=== PATIENT | female | born 1990 | race Caucasian/White ===

== ENCOUNTER → 2019-11-23 15:55 | Outpatient (BNVA) | payer BC, SELFPAY | PROVIDERS: Family Provider Nurse Practitioner Family; Referring Provider Dermatology; Visit Provider Dermatology | DX: L30.1 Dyshidrosis [pompholyx] (principal) | CPT/HCPCS: 99203 ==

== ENCOUNTER 2020-09-13 11:16 | Emergency (ER) | payer BC, SELFPAY ==
[2020-09-13 12:13] VITALS: BP 119/84; PULSE 93; RESP 16; TEMP 36.9; O2SAT 96; BMI 33.6
--- NOTE | 2020-09-13 12:23 | CT_ITS ---
WS: [id number] CT ABDOMEN PELVIS TECHNIQUE: Contrast-enhanced CT of the abdomen and pelvis with coronal and sagittal reformatted image s. CLINICAL INFORMATION: RLQ abd tenderness. right flank pain. RUQ pain COMPARISON: None. DLP: 1765.[address] scans at [facility] use at least one of these dose optimization techniques: automat ed exposure control; mA and/or kV adjustment per patient size (includes targeted exams where dose is matched to clinical indication); or iterative reconstruction. FINDINGS: Diffuse fatty infiltration of the liver. Normal gallbladder. Normal spleen. Normal GE junction. Vandana l portal vein and splenic vein. Normal pancreas. Adrenal glands are normal. No hydronephrosis in eith er kidney. Normal renal parenchymal enhancement. No obstructing renal or ureteral calculi. Normal caliber abdominal aorta. Lung bases are well aerated . Normal sigmoid colon. No evidence of high-grade small or large bowel obstruction. Normal appendix i n the right lower quadrant. No evidence of acute appendicitis. Small amount of free fluid in the pelvis. Normal physiologic uterine enhancement. Enhancing left ovar thu cyst measuring 2.1 x 2.2 cm likely corpus luteum cyst. Small amount of free fluid in the right pe lvis. CT/CT abdomen pelvis w con* [id number] IMPRESSION: 1. No evidence of hydronephrosis. Normal renal parenchymal enhancement. No obs tructing renal or ureteral calculi. 2. Normal appendix in the right lower quadrant. No evidence of acute appendici tis. 3. Enhancing left corpus luteum cyst measuring 2.1 x 2.2 cm. 4. Small amount of free fluid in the right pelvic cul-de-sac.
--- NOTE | 2020-09-13 12:23 | US_ITS ---
WS: [id number] ULTRASOUND ABDOMEN LIMITED CLINICAL INFORMATION: RUQ US COMPARISON: None. FINDINGS: Technically difficult examination due to bowel gas. Liver Size: Mild hepatomegaly Craniocaudal length: 16.5 cm. Echogenicity: Dense Surface nodularity: None. Mass (size and location): None. Bile ducts Intrahepatic ducts: Normal. Common bile duct diameter: 0.3 cm. Gallbladder Normal. Gallstones: None. Gallbladder sludge: None. Gallbladder wall thickening: None. Pericholecystic fluid: None. Sonographic Sharif sign: Absent. Pancreas Not well seen Right kidney: Normal. Hydronephrosis: None. Size: 10.5 cm x 4.3 cm x 6.3 cm. Abdominal aorta and IVC Visualized portions are normal. Ascites: None. US/US abdomen limited [id number] IMPRESSION: Technically limited examination due to bowel gas. 1. Mild hepatomegaly with diffuse fatty infiltration. 2. Normal gallbladder. Normal common bile duct. 3. No hydronephrosis in right kidney.
--- NOTE | 2020-09-13 12:32 | ED_ITS ---
HPI - Abdominal Pain General: Chief Complaint: Abdominal Pain Stated Complaint: ABD pain, mostly R Time Seen by Provider: 09/13/20 12:19 History of Present Illness: HPI narrative: The patient is a 29-year-old female who comes to the ER complaining of right sided abdominal pain for the past day. Also occasional mild nausea. She complains of chronic mild constipation which is not new for her. She was seen at a outside facility earlier today urgent care likely and told to come to the ER because she had blood in her urine. She does not have visible blood in her urine so it must of been from a microscopic test. She says she is also had problems with right upper quadrant pain in the past and had her gallbladder checked at least a few times with no intervention. She does also complain today that the pain goes to bilateral flanks. Denies any previous abdominal surgeries. MD elicited complaint: abdominal pain and flank pain Onset (ago): day(s) (1) Pain Consistency: constant Location: RUQ, RLQ and R flank Severity: moderate Quality: sharp Radiation: R flank and bilateral flank Exacerbating factors: nothing Relieving factors: nothing Associated Symptoms: Reports no associated symptoms, constipation and nausea; Denies GI cramping and diarrhea Review of Systems General: Reports: 10 or more systems reviewed and unremarkable except in HPI and below Const: Denies: fatigue Eyes: Denies: change in vision, blurry vision or eye redness ENMT: Denies: throat pain, swelling of lips/tongue, ear or mastoid pain or nasal congestion Card: Denies: chest pain, palpitations, irregular heart rhythm, edema, dyspnea on exertion or orthopnea Resp: Denies: dyspnea, productive cough or non-productive cough GI: Reports: abdominal pain, nausea and constipation; Denies: diarrhea or GI cramping : Denies: flank pain, difficulty voiding, urinary frequency or urinary urgency Musc: Denies: neck pain, back pain, extremity pain, joint pain, joint redness, limited range of motion or muscle weakness Skin/Breast: Denies: rash, pruritus, erythema, skin pain or skin tenderness Neuro: Denies: headache(s), numbness in extremities, weakness in extremities, sensory changes, difficulty walking, dizziness, confusion or Slurred speech present Psych: Denies: anxiety or depression Endo: Denies: polyuria All/Imm: Denies: urticaria, throat swelling or tongue swelling PFSH ED PFSH: Family History Grandmother Cancer Father Clotting disorder Hypertension Grandfather Dementia Stroke Social History Smoking and tobacco status: never smoked Second hand smoke exposure: No Alcohol intake: current Alcohol intake frequency: holidays/special occasions only Agree to transfusion: Yes (11/23/2019 per patient) Physical Exam Const: COMMON NORMALS: no acute distress, average body habitus, patient oriented x3, no limitations, healthy appearing, alert and well nourished GENERAL APPEARANCE: cooperative, comfortable, well kempt and well developed ORIENTATION/CONSCIOUSNESS: Yes awake, Yes oriented to person, Yes oriented to place and Yes oriented to time HENMT: COMMON NORMALS: normocephalic, external ears normal and Normal external nose present HEAD & SCALP: normal to inspection and normocephalic NOSE: Normal external nose present EXTERNAL EAR: Yes external ears normal MOUTH: Normal oral and palatal mucosa present THROAT: posterior oropharynx normal Eye: COMMON NORMALS: Equal, round and reactive pupils present and EOMs intact bilaterally GENERAL EYE: appearance normal, both eyes and all related structures PUPIL: Yes Equal, round and reactive pupils present Neck/C-Spine: COMMON NORMALS: full ROM, no lymphadenopathy, no meningeal signs and no JVD GENERAL: Yes normal visual inspection Lymph: LYMPHATIC: no lymphadenopathy noted Chest: COMMONS NORMALS: normal inspection of the chest and normal palpation of entire chest wall Resp: COMMON NORMALS: normal respiratory effort, No retractions, No use of accessory muscles, clear to auscultation bilaterally and percussion normal EFFORT & INSPECTION: Yes able to speak in complete sentences AUSCULTATION: clear to auscultation bilaterally PERCUSSION: percussion normal Cardio: COMMON NORMALS: no JVD, regular rate, regular rhythm, S1 normal heart sound present, S2 normal heart sound present and Peripheral pulses 2+ throughout RATE: regular rate RHYTHM: regular rhythm HEART SOUNDS: S1 normal heart sound present and S2 normal heart sound present PERIPHERAL PULSES: Peripheral pulses 2+ throughout GI: COMMON NORMALS: Normal to inspection, nondistended, normoactive bowel sounds present, Soft to palpation, non-tender and no masses INSPECTION: Yes normal to inspection PALPATION: Yes Soft to palpation : COMMON NORMALS: Yes no CVA tenderness BLADDER/KIDNEY EXAM: Yes no CVA tenderness Back/Pelvis: COMMON NORMALS: no CVA tenderness, thoracic and lumbar spine normal to inspection, no thoracic nor lumbar tenderness and thoraco-lumbar ROM normal Extremity: COMMON NORMALS: normal to inspection, full ROM, capillary refill normal, no joint enlargement and no pedal edema GENERAL: Yes normal exam except as noted Neuro: COMMON NORMALS: patient oriented x3, CN's II-XII intact bilaterally, moves all extremities, no focal motor deficits, no sensory deficits noted and gait normal SENSORIUM/ORIENTATION: Yes alert, Yes oriented to person, Yes or iented to place and Yes oriented to time MENINGEAL SIGNS: Yes no meningeal signs Psych: COMMON NORMALS: mental status grossly normal, Normal thought process present, cooperative, normal affect and speech normal APPEARANCE: Yes well kempt ATTITUDE: Yes calm SPEECH: Yes normal speech THOUGHT PROCESS: Normal thought process present Skin: COMMON NORMALS: no rashes or lesions noted GENERAL SKIN EXAM: no rashes or lesions noted Course Vital Signs: Vital signs: Vital Signs Temperature 98.5 F 09/13/20 12:13 Pulse Rate 93 09/13/20 12:13 Respiratory Rate 16 09/13/20 12:13 Blood Pressure 119/84 09/13/20 12:13 Pulse Oximetry 96 09/13/20 12:13 MDM - Abdominal Pain MDM Narrative: Medical decision making narrative: Patient came to the ER complaining of right upper and right lower quadrant abdominal pain. She says she has chronic constipation and has had issues with right upper quadrant pain before however had it looked at multiple times and has been negative. Ultrasound right upper quadrant is normal as well as CT abdomen pelvis shows normal gallbladder and appendix. No acute abnormality seen on any image. Stable for discharge with outpatient follow-up in a few days. ER with worsening symptoms at any time. She does have trace blood in her urine and will treat for potential UTI. No stone seen. Lab Data: Labs: Lab Results 09/13/20 09/13/20 09/13/20 Range/Units 13:05 13:05 13:05 WBC 5.6 (4.0-10.0) 10^3/ uL RBC 5.02 (4.1-5.3) 10^6/u L Hgb 15.0 (11.5-15.3) g/dL Hct 44.9 (37.0-47.0) % MCV 89.4 (81-99) fL MCH 29.9 (28.0-34.0) pg MCHC 33.4 (30.0-36.0) g/dL RDW 11.9 L (12.1-15.1) % Plt Count 234 (130-400) 10^3/c mm MPV 10.2 (7.4-10.4) fL Neut % (Auto) 77.2 % Lymph % (Auto) 14.1 % [place] % (Auto) 7.7 % Eos % (Auto) 0.2 % Baso % (Auto) 0.4 % Neut # (Auto) 4.29 (1.8-7.7) 10^3/u L Lymph # (Auto) 0.8 (0.8-4.8) 10^3/u L [place] # (Auto) 0.4 (0.2-0.9) 10^3/u L Eos # (Auto) 0.0 (0.0-0.8) 10^3/u L Baso # (Auto) 0.0 (0.0-0.1) 10^3/u L Nucleated RBC % (a uto) 0 % Nucleated RBCs # 0.0 /100WBC Sodium 136 (136-145) mmol/L Potassium 3.9 (3.5-5.1) mmol/L Chloride 101 (98-107) mmol/L Carbon Dioxide 25 (22-29) mmol/L Anion Gap 13.9 (5-19) BUN 7 (6-20) mg/dL Creatinine 0.8 (0.5-0.9) mg/dL GFR Calculation 84.2 L (90-130) mL/min Glucose 87 (65-115) mg/dL Calculated Osmolal ity 279 L (285-295) mOsm/k g Calcium 8.8 (8.5-10.5) mg/dL Total Bilirubin 1.2 (0.15-1.2) mg/dL AST 29 (0-32) U/L ALT 41 H (0-33) U/L Alkaline Phosphata se 54 (35-105) IU/L Total Protein 7.5 (6.6-8.7) g/dL Albumin 4.5 (3.5-5.2) g/dL Globulin 3.0 (1.3-4.6) g/dL Lipase 39 (13-60) U/L HCG, Qual Negative (Negative) Urine Color (Yellow) Urine Appearance (CLEAR) Urine pH (5-7) Ur Specific Gravit y (1.005-1.030) Urine Protein (Negative) Urine Glucose (UA) (Normal) Urine Ketones (Negative) Urine Blood (Negative) Urine Nitrate (Negative) Urine Bilirubin (Negative) Urine Urobilinogen (Negative) mg/dL Ur Leukocyte Yanet ase (Negative) Urine RBC (0-2) /hpf Urine WBC (0-5) /hpf Ur Squamous Epith Cells (0-5) /hpf Amorphous Sediment Urine Bacteria (NONE) /hpf 09/13/20 Range/Units 13:05 WBC (4.0-10.0) 10^3/ uL RBC (4.1-5.3) 10^6/u L Hgb (11.5-15.3) g/dL Hct (37.0-47.0) % MCV (81-99) fL MCH (28.0-34.0) pg MCHC (30.0-36.0) g/dL RDW (12.1-15.1) % Plt Count (130-400) 10^3/c mm MPV (7.4-10.4) fL Neut % (Auto) % Lymph % (Auto) % [place] % (Auto) % Eos % (Auto) % Baso % (Auto) % Neut # (Auto) (1.8-7.7) 10^3/u L Lymph # (Auto) (0.8-4.8) 10^3/u L [place] # (Auto) (0.2-0.9) 10^3/u L Eos # (Auto) (0.0-0.8) 10^3/u L Baso # (Auto) (0.0-0.1) 10^3/u L Nucleated RBC % (a uto) % Nucleated RBCs # /100WBC Sodium (136-145) mmol/L Potassium (3.5-5.1) mmol/L Chloride (98-107) mmol/L Carbon Dioxide (22-29) mmol/L Anion Gap (5-19) BUN (6-20) mg/dL Creatinine (0.5-0.9) mg/dL GFR Calculation (90-130) mL/min Glucose (65-115) mg/dL Calculated Osmolal ity (285-295) mOsm/k g Calcium (8.5-10.5) mg/dL Total Bilirubin (0.15-1.2) mg/dL AST (0-32) U/L ALT (0-33) U/L Alkaline Phosphata se (35-105) IU/L Total Protein (6.6-8.7) g/dL Albumin (3.5-5.2) g/dL Globulin (1.3-4.6) g/dL Lipase (13-60) U/L HCG, Qual (Negative) Urine Color Yellow (Yellow) Urine Appearance Clear (CLEAR) Urine pH 6 (5-7) Ur Specific Gravit y 1.005 (1.005-1.030) Urine Protein Neg (Negative) Urine Glucose (UA) Norm (Normal) Urine Ketones Negative (Negative) Urine Blood 2+ H (Negative) Urine Nitrate Negative (Negative) Urine Bilirubin Neg (Negative) Urine Urobilinogen Norm (Negative) mg/dL Ur Leukocyte Yanet ase Negative (Negative) Urine RBC 0-4 H (0-2) /hpf Urine WBC None (0-5) /hpf Ur Squamous Epith Cells 0-4 H (0-5) /hpf Amorphous Sediment Not Reportable Urine Bacteria Trace (NONE) /hpf Discharge Plan Discharge Patient Disposition: Home Clinical Impression: Abdominal pain Condition: Stable Prescriptions: New Macrobid 100 mg capsule 100 mg PO BID 5 Days Qty: 10 RF: 0 No Action sumatriptan succinate 25 mg tablet See Rx Instructions .ROUTE .COMPLEX RF: 0 Discharge Orders: Discharge ED (Routine); Ordered 09/13/20 Ordered By: Reji Bedoya Discharge Diet: Advance as tolerated Discharge Activity: Resume usual activity Patient Instructions: Abdominal Pain (ED), Opioid Safety Activity Restrictions/Additional Instructions: There is no clear cause of your abdominal pain however your gallbladder appears normal and your appendix does as well. The CAT scan of your belly did not find any acute abnormalities. Please take the antibiotic to help with a potential urinary tract infection and drink lots of water. Return to the ER with worsening symptoms otherwise follow-up with your primary care doctor in a couple days. 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
[2020-09-13 13:20] LABS: Basophils % 0.4 %; Eosinophils % 0.2 %; Hematocrit 44.9 % (37.0-47.0); Lymphocytes # 0.8 10^3/uL (0.8-4.8); Lymphocytes % 14.1 %; Mean Corpuscular HGB Conc 33.4 g/dL (30.0-36.0); Mean Corpuscular Hemoglobin 29.9 pg (28.0-34.0); Mean Corpuscular Volume 89.4 fL (81-99); Mean Platelet Volume 10.2 fL (7.4-10.4); Monocytes # 0.4 10^3/uL (0.2-0.9); Monocytes % 7.7 %; Neutrophils # 4.29 10^3/uL (1.8-7.7); Neutrophils % 77.2 %; Nucleated Red Blood Cells % 0 %; Platelet Count 234 10^3/cmm (130-400); Red Blood Count 5.02 10^6/uL (4.1-5.3); Red Cell Distribution Width 11.9 % (12.1-15.1); White Blood Count 5.6 10^3/uL (4.0-10.0)
[2020-09-13 13:35] LABS: HCG, Serum Qual Negative (Negative)
[2020-09-13 13:37] LABS: Alanine Aminotransferase 41 U/L (0-33); Albumin Level 4.5 g/dL (3.5-5.2); Alkaline Phosphatase 54 IU/L (35-105); Anion Gap 13.9 (5-19); Aspartate Amino Transferase 29 U/L (0-32); Blood Urea Nitrogen 7 mg/dL (6-20); Calcium 8.8 mg/dL (8.5-10.5); Carbon Dioxide 25 mmol/L (22-29); Chloride 101 mmol/L (98-107); Glomerular Filtration Rate 84.2 mL/min (90-130); Glucose 87 mg/dL (65-115); Lipase 39 U/L (13-60); Osmolality Calculated 279 mOsm/kg (285-295); Potassium 3.9 mmol/L (3.5-5.1); Sodium 136 mmol/L (136-145); Total Bilirubin 1.2 mg/dL (0.15-1.2); Total Protein 7.5 g/dL (6.6-8.7)
[2020-09-13] MEDS: iohexol 300 mg/mL 100 mL Btl IV (13:45)
[2020-09-13 13:59] LABS: Urine Appearance Clear (CLEAR); Urine Color Yellow (Yellow)
[2020-09-13 14:00] LABS: Add Urine Microscopic? YES; Bilirubin Urine Neg (Negative); Blood Urine 2+ (Negative); Glucose Urine UA Norm (Normal); Ketones Urine Negative (Negative); Leukocyte Esterase Urine Negative (Negative); Nitrate Urine Negative (Negative); Protein Urine Neg (Negative); RBC Urine 0-4 /hpf (0-2); Specific Gravity, Urine 1.005 (1.005-1.030); Urobilinogen Urine Norm (Negative); pH Urine 6 (5-7)
[2020-09-13 14:01] LABS: Add Urine Culture? No; Bacteria Urine TRACE /hpf; Squamous Epithelial Cell Urine 0-4 /hpf (0-5)
[2020-09-13 15:33] VITALS: BP 106/72; PULSE 68; RESP 15; O2SAT 98
== END 2020-09-13 15:34 | disposition home or self-care (01) ==
PROVIDERS: Physician Assistant; Emergency Provider Family Medicine
DX: R10.9 Unspecified abdominal pain (principal)
CPT/HCPCS: 74177; 76705; 80053; 81001; 83690; 84703; 85025; 99283; Q9967

== ENCOUNTER → 2020-10-31 13:39 | Outpatient (BNVA) | payer BC, SELFPAY | PROVIDERS: Visit Provider Nurse Practitioner Women's Health | DX: N92.6 Irregular menstruation, unspecified (principal) | CPT/HCPCS: 81025 ==

== ENCOUNTER → 2020-11-26 08:52 | Outpatient (BNVA) | payer BC, SELFPAY | PROVIDERS: Visit Provider Obstetrics & Gynecology | DX: O20.9 Hemorrhage in early pregnancy, unspecified (principal); Z3A.00 Weeks of gestation of pregnancy not specified | CPT/HCPCS: 84315; 84702; 86850; 86900 ==

== ENCOUNTER → 2021-01-03 14:24 | Outpatient (BNVA) | payer BC, SELFPAY | PROVIDERS: Visit Provider Obstetrics & Gynecology | DX: Z34.01 Encounter for supervision of normal first pregnancy, first trimester (principal) | CPT/HCPCS: 80307; 84315; 84443; 85025; 86592; 86762; 86803; 86850; 86900; 87086; 87340; 87491; 87591; 87624; 87661; 87806 ==

== ENCOUNTER → 2021-02-18 10:02 | Outpatient (BNVA) | payer BC, SELFPAY | PROVIDERS: PCP Nurse Practitioner Family; Visit Provider Obstetrics & Gynecology | DX: Z34.90 Encounter for supervision of normal pregnancy, unspecified, unspecified trimester (principal) | CPT/HCPCS: 80307; 84315 ==

== ENCOUNTER → 2021-04-05 08:21 | Outpatient (BNVA) | payer BC, SELFPAY | PROVIDERS: PCP Nurse Practitioner Family; Visit Provider Obstetrics & Gynecology | DX: Z34.01 Encounter for supervision of normal first pregnancy, first trimester (principal) | CPT/HCPCS: 82950; 84315; 84443; 85025; 87086 ==

== ENCOUNTER → 2021-04-24 09:15 | Outpatient (BNVA) | payer BC, SELFPAY | PROVIDERS: PCP Nurse Practitioner Family; Visit Provider Obstetrics & Gynecology | DX: Z34.90 Encounter for supervision of normal pregnancy, unspecified, unspecified trimester (principal) | CPT/HCPCS: 84315; 87086 ==

== ENCOUNTER → 2021-05-03 08:12 | Outpatient (BNVA) | payer BC, SELFPAY | PROVIDERS: PCP Nurse Practitioner Family; Visit Provider Obstetrics & Gynecology | DX: Z34.90 Encounter for supervision of normal pregnancy, unspecified, unspecified trimester (principal) | CPT/HCPCS: 84315; 87086 ==

== ENCOUNTER → 2021-05-17 09:46 | Outpatient (BNVA) | payer BC, SELFPAY | PROVIDERS: PCP Nurse Practitioner Family; Visit Provider Obstetrics & Gynecology | DX: Z34.80 Encounter for supervision of other normal pregnancy, unspecified trimester (principal) | CPT/HCPCS: 84315; 87086 ==

== ENCOUNTER 2021-05-22 12:31 | Inpatient (IN) | payer BC, SELFPAY ==
--- NOTE | 2021-05-24 15:07 | ANES.PREANE2 ---
Pre-Anesthetic Assessment Height/Weight: Height 1.52 m Familial anesthetic complications: None Was Beta Radha taken within 24 hours: N/A Was Clonidine taken within 24 hours: N/A Social No alcohol and No tobacco Exam alert, oriented x 3, clear to auscultation bilaterally and regular rate & rhythm Airway Submandibular: within normal limits Cervical ROM: within normal limits Mallampati: Class II Dentition: full History/ROS No significant history except as noted Pulmonary None reported CV/HEM None reported None reported Hepatic None reported GI IBS Metabolic None reported Musc/skel None reported Neuropsych None reported Anesthetic Plan ASA status: 2 Anesthesia: Anesthesia Evaluation and Regional (specify below) Other: I discussed with patient the risk and benefits of labor epidural including PDPH, hypotension, back pain/discomfort/bruising, catastrophic nerve injury including paralysis, abscess, hematoma, failed block, one sided block, and LAST. Patient does not plan for an epidural at this time but if she changes her mind or a need for c section arises she has signed consent for labor epidural, spinal, and in case of emergency consents to general anesthesia. Risk of > 500 ml blood loss (7ml/kg in children): No Medications/Allergies Home Medications Medication Instructions Recorded Confirmed Last Taken Type sumatriptan succinate 25 mg tablet See Rx Instructions .ROUTE .COMPLEX 09/13/20 05/24/21 Unknown History prenat.vits,lexi,nyt-aayf-inreo 1 tab PO DAILY 10/31/20 05/24/21 Unknown History Allergies Allergy/AdvReac Type Severity Reaction Status Date / Time No Known Allergies Allergy Verified 05/24/21 08:11 [facility] Anesthesia Medical History Finger fracture, left IBS (irritable bowel syndrome) more constipation and largely stress related No pertinent past medical history neg dx- htn, dm, thyroid, dvt/pe PCP: Carolina Goins Surgical History No pertinent past surgical history Family History Father Hypertension Grandfather Stroke unknown Grandmother Breast cancer unknown age of onset Mother Thyroid disease Denies family history of Colon cancer Ovarian cancer Diabetes Heart disease Hypercholesteremia Uterine cancer Data Anesthesia Cardiac Studies: No Data to Display
== END 2021-05-24 15:11 | disposition home or self-care (01) | DRG 833 ==
LOC: OBGYN 06-15 07:13
PROVIDERS: Admitting Provider Obstetrics & Gynecology; PCP Nurse Practitioner Family; Visit Provider Obstetrics & Gynecology
DX: O26.93 Pregnancy related conditions, unspecified, third trimester (principal)
CPT/HCPCS: 80053; 84315; 85025

== ENCOUNTER → 2021-05-31 08:47 | Outpatient (BNVA) | payer BC, SELFPAY | PROVIDERS: PCP Nurse Practitioner Family; Visit Provider Obstetrics & Gynecology | DX: Z34.90 Encounter for supervision of normal pregnancy, unspecified, unspecified trimester (principal) | CPT/HCPCS: 84315; 87081; 87086 ==

== ENCOUNTER → 2021-06-07 08:07 | Outpatient (BNVA) | payer BC, SELFPAY | PROVIDERS: PCP Nurse Practitioner Family; Visit Provider Obstetrics & Gynecology | DX: Z34.90 Encounter for supervision of normal pregnancy, unspecified, unspecified trimester (principal) | CPT/HCPCS: 84315; 87086 ==

== ENCOUNTER → 2021-06-14 09:29 | Outpatient (BNVA) | payer BC, SELFPAY | PROVIDERS: PCP Nurse Practitioner Family; Visit Provider Obstetrics & Gynecology | DX: Z34.80 Encounter for supervision of other normal pregnancy, unspecified trimester (principal) | CPT/HCPCS: 84315; 87086 ==

== ENCOUNTER 2021-06-18 18:34 | Outpatient (CLI) | payer BC, SELFPAY ==
[2021-06-18] VITALS (7 sets, daily range): BP systolic 120–136; BP diastolic 66–76; PULSE 60–75; RESP 16; TEMP 36.4–36.8; BMI 40.2
== END 2021-06-18 20:10 | disposition home or self-care (01) ==
LOC: OPOB 18:35 → OBGYN 18:36
PROVIDERS: PCP Nurse Practitioner Family; Visit Provider Obstetrics & Gynecology
DX: O26.899 Other specified pregnancy related conditions, unspecified trimester (principal); Z3A.00 Weeks of gestation of pregnancy not specified; R10.9 Unspecified abdominal pain; R10.2 Pelvic and perineal pain
CPT/HCPCS: 59025; 99211

== ENCOUNTER → 2021-06-21 08:11 | Outpatient (BNVA) | payer BC, SELFPAY | PROVIDERS: PCP Nurse Practitioner Family; Visit Provider Obstetrics & Gynecology | DX: O20.9 Hemorrhage in early pregnancy, unspecified; Z3A.00 Weeks of gestation of pregnancy not specified | CPT/HCPCS: 84315; 87086 ==

== ENCOUNTER 2021-06-22 12:36 | Inpatient (IN) | payer BC, SELFPAY ==
[2021-06-22] VITALS (41 sets, daily range): BP systolic 101–136; BP diastolic 54–77; PULSE 77–99; RESP 18; TEMP 35.6–37.3; BMI 40.9
[2021-06-22 12:15] LABS: Nitrazine Paper, PH Negative
[2021-06-22 12:17] LABS: Actim Prom Positive
[2021-06-22 13:24] LABS: Basophils % 0.1 %; Eosinophils % 0.3 %; Hematocrit 39.9 % (37.0-47.0); Hemoglobin 13.5 g/dL (11.5-15.3); Lymphocytes # 1.5 10^3/uL (0.8-4.8); Lymphocytes % 10.7 %; Mean Corpuscular HGB Conc 33.8 g/dL (30.0-36.0); Mean Corpuscular Hemoglobin 29.8 pg (28.0-34.0); Mean Corpuscular Volume 88.1 fl (81-99); Mean Platelet Volume 11.9 fL (7.4-10.4); Monocytes # 1.2 10^3/uL (0.2-0.9); Neutrophils # 11.59 10^3/uL (1.8-7.7); Neutrophils % 80.1 %; Nucleated Red Blood Cells % 0 %; Platelet Count 213 10^3/cmm (130-400); Red Blood Count 4.53 10^6/uL (4.1-5.3); White Blood Count 14.5 10^3/uL (4.0-10.0)
[2021-06-22] MEDS: dextrose 5%-lactated ringers 1,000 ML 125 ML IV (17:44)
--- NOTE | 2021-06-22 18:59 | W.PM.OPSUD ---
Surgery/Procedure H&P Update DATE OF PROCEDURE: June 22, 2021 DATE H&P PERFORMED: 06/14/21 H&P UPDATE INFORMATION: I have reviewed H&P completed within last 30 days and Changes to prior documentation as noted here (Cervix: 6-7/90%/0/Vx/rupture fore bag/vertex presentation)
[2021-06-22] MEDS: diphenhydrAMINE 50 mg/mL SDV 1mL 25 MG IVP (23:27)
[2021-06-22] MEDS: ampicillin 2,000 MG in sodium chloride 0.9% (plus) 50 ML 100 MG IV (23:35)
[2021-06-23] VITALS (25 sets, daily range): BP systolic 101–135; BP diastolic 53–62; PULSE 69–95; RESP 16–18; TEMP 36.3–36.9
[2021-06-23] MEDS: oxytocin 30 UNIT/500 ML BAG 600 UNIT IV (01:45)
--- NOTE | 2021-06-23 02:03 | P.PCNOB_ITS ---
Delivery Note: Date of delivery: June 23, 2021 Pre-delivery diagnoses: Term Post-delivery diagnoses: Term delivered Procedure: Spontaneous vaginal delivery Delivering Physician: Juan Hamm MD Estimated blood loss (mL): 300 Pre-Delivery Course: Ms. Sun is a 30 year old G1 with LMP of 09/07/2020 and VÍCTOR 06/29/2021 based on 6 week sonogram. This places her at 39-0/7 weeks gestation admitted to L&D with premature rupture of membranes and contractions. Delivery: The patient was noted to be complete and pushing, so was placed in the dorsal lithotomy position, prepped and draped in the usual sterile fashion for a vaginal delivery. Pt. Noted to have epidural anesthesia. At 0143 the patient delivered a viable term male infant weighing 3000g with scores of 8 and 9at one and five minutes, respectively. The vertex was delivered spontaneously over intact perineum. The patient was asked to push and the head delivered spontaneously in the MALLY position, over an intact perineum. A nuchal cord was checked and 1 noted, and relieved around head as necessary. The anterior shoulder delivered easily and the posterior shoulder followed. The remainder of the infant was easily delivered and the oropharynx and nasopharynx was bulb suctioned. The infant was noted to have spontaneous cry and spontaneous movement of all four extremities. The cord was clamped x 2 and cut and noted to have 2 arteries and one vein. The infant was passed to the mother's abdomen where nursing personnel were in attendance. Cord blood sample was then obtained. The placenta delivered intact spontaneously and the uterus was explored. 20 units of Pitocin was placed in the IV bag to firm the uterus. Examination of the cervix and vaginal vault did not reveal any lacerations. A vaginal pack was then placed. Examination of the perineum showed no lacerations. The vaginal pack was then removed. The patient tolerated this procedure well, and recovered in L&D with her infant in their LDR room. All sponge and needle counts were correct. History History History 1 Term 0 Miscarriages/Ectopic 0 0 Living Children 0 Coding Level of Care Code Acute Assistant Manager/Embalmer for Chg Fwabdiaziz
[2021-06-23] MEDS: HYDROcodone-acetaminophen 5-325 mg Tablet PO (05:52)
[2021-06-23 14:19] LABS: Hematocrit 38.8 % (37.0-47.0); Mean Corpuscular HGB Conc 33.5 g/dL (30.0-36.0); Mean Corpuscular Hemoglobin 30.2 pg (28.0-34.0); Mean Platelet Volume 12.1 fL (7.4-10.4); Platelet Count 216 10^3/cmm (130-400); Red Blood Count 4.31 10^6/uL (4.1-5.3); Red Cell Distribution Width 14.3 % (12.1-15.1); White Blood Count 22.1 10^3/uL (4.0-10.0)
[2021-06-23] MEDS: ibuprofen 800 mg tablet PO ×2 (14:53→21:23)
[2021-06-23] MEDS: docusate sodium 100 mg Capsule PO (18:39)
[2021-06-24 05:45] VITALS: TEMP 36
[2021-06-24 05:46] VITALS: BP 108/61; PULSE 72
--- NOTE | 2021-06-24 08:11 | P.DS_ITS ---
Discharge Providers [employer] Date of Admission: 06/22/21 12:36 Date of Discharge: 06/24/21 Attending Provider at Admission: Juan Hamm MD Attending Provider at Discharge: Juan Hamm MD Primary Care Provider: JSESICA Best Reason for Visit Reason for Visit: decreased movement, contractions Hospital Course Hospital Course Ms. Sun is a 30 year old G1 with LMP of 09/07/2020 and VÍCTOR 06/29/2021 based on 6 week sonogram. This places her at 39-0/7 weeks gestation admitted to L&D with premature rupture of membranes and contractions. SHe progressed to have a spontaneous vaginal delivery without complications except nuchal cord times 1. She delivered a male infant apgars 8/9 with a weight of 3000g. observation uneventful. She is afebrile and hemodynamically stable day 1. Ambulating without difficulty, tolerating diet well. Information Peripartum Data: Delivery Method: Vaginal Physical Exam Narrative: GA; alert and oriented x 3 HEENT: normal Breasts: engorged Nipples - skin intact Lungs; clear to auscultation Heart: regular rhythm, no murmurs. Abd: Appropriately tender. BS+. Uterine fundus below umbilicus. No Fundal Tenderness. Perineum: normal lochia. Extremities: no edema, no cyanosis, no tenderness. History History History 1 Term 0 Miscarriages/Ectopic 0 0 Living Children 0 Discharge Data Studies Completed and Pending Laboratory Results WBC 22.1 10^3/uL (4.0-10.0) H 06/23/21 13:30 RBC 4.31 10^6/uL (4.1-5.3) 06/23/21 13:30 Hgb 13.0 g/dL (11.5-15.3) 06/23/21 13:30 Hct 38.8 % (37.0-47.0) 06/23/21 13:30 MCV 90.0 fl (81-99) 06/23/21 13:30 MCH 30.2 pg (28.0-34.0) 06/23/21 13:30 MCHC 33.5 g/dL (30.0-36.0) 06/23/21 13:30 RDW 14.3 % (12.1-15.1) 06/23/21 13:30 Plt Count 216 10^3/cmm (130-400) 06/23/21 13:30 MPV 12.1 fL (7.4-10.4) H 06/23/21 13:30 Neut % (Auto) 80.1 % 06/22/21 13:05 Lymph % (Auto) 10.7 % 06/22/21 13:05 [place] % (Auto) 8.0 % 06/22/21 13:05 Eos % (Auto) 0.3 % 06/22/21 13:05 Baso % (Auto) 0.1 % 06/22/21 13:05 Neut # (Auto) 11.59 10^3/uL (1.8-7.7) H 06/22/21 13:05 Lymph # (Auto) 1.5 10^3/uL (0.8-4.8) 06/22/21 13:05 [place] # (Auto) 1.2 10^3/uL (0.2-0.9) H 06/22/21 13:05 Eos # (Auto) 0.0 10^3/uL (0.0-0.8) 06/22/21 13:05 Baso # (Auto) 0.0 10^3/uL (0.0-0.1) 06/22/21 13:05 Nucleated RBC % (auto) 0 % 06/22/21 13:05 Nucleated RBCs # 0.0 /100WBC 06/22/21 13:05 Insulin-like GF I Positive 06/22/21 11:58 Vitals Last Vital Signs Temp 96.8 F L 06/24/21 05:45 Pulse 72 06/24/21 05:46 Resp 16 06/23/21 21:25 BP 108/61 06/24/21 05:46 Discharge Plan Discharge Patient Disposition: Home Condition: Stable Prescriptions: New ibuprofen 800 mg tablet 800 mg PO TID PRN (Reason: pain) Qty: 60 0RF Iron (ferrous sulfate) 325 mg (65 mg iron) tablet 325 mg PO BID Qty: 60 0RF Colace 100 mg capsule 100 mg PO BID Qty: 60 0RF acetaminophen 325 mg capsule 325 mg PO Q4H PRN (Reason: fever or pain) Qty: 60 0RF Discharge Orders: Discharge Order (Routine); Ordered 06/24/21 Ordered By: Juan Hamm Referrals: Juan Hamm MD [Physician] - 6 Weeks Patient Instructions: Depression (DC), Bleeding (DC), Preeclampsia and Eclampsia After Delivery (GEN), OB Discharge Report, OB Food/Drug Interaction Guide, OB Care at Home, Opioid Safety, OB Home Care, OB Proud Parent Packet, OB Vaginal Deliveries - [facility], Abnormal Bleeding Activity Restrictions/Additional Instructions: 1. Please call [facility] on next working day to make your post appointment in 6 weeks. 2. Please stay home until you come back to the clinic on first post-operative check up. 3. Please follow instructions on your medications CAREFULLY. 4. If you have abdominal incision, do not cover it unless dressing is necessary because of drainage. OK to shower, but avoid bath. Leave steri-strips until they fall off. If they are still on one week after surgery, you may remove them. 5. If you had vaginal surgery or vaginal repair, Dr. Hamm may instruct you to take SITZ bath. 6. Yellow, blood tinged odorous vaginal discharge is usually normal after hysterectomy or vaginal surgeries. 7. No sexual intercourse, tampons, or douches until you are completely released from the post-operative care. 8. Avoid constipation by eating right and maybe using some Metamucil or Milk of Magnesia. 9. All prescription refills are given during the working hours. Please do no wait till it runs out. Call the clinic at [phone] before your medication runs out. The clinic will get in touch with your doctor to prescribe medications if necessary. 10. Please remain within 40 mile radius from our hospital because emergencies do happen now and then during the post-operative period. 11. If you have stairs at home, take one step at a time slowly and minimize the number of trips. It helps to stay in one floor for the next few days. No lifting except what you can lift by one hand until you are released from the post-operative care. 12. Driving is discouraged until you are well healed. It may be 3-4 weeks before you feel strong enough to drive. You should be able to turn and look through the rear window without pain and you should be able to push the brake pedal very hard without pain before you drive. No fast rules, but SAFETY should be your primary concern. DO NOT drive if you are on sedating medications such as narcotics. 13. Call the clinic (during working hours) to make urgent appointment or go to the Emergency room, if any of the following occurs: i. Vaginal bleeding becomes heavy, more than a period. ii. Incision becomes red and sore, or drains pus. iii. Your temperature is over 100.4 or you have chill. iv. IV site becomes red and swollen (a little ``knot?? is usually OK) v. Persistent nausea and vomiting vi. Persistent constipation or diarrhea vii. Rash or allergic reaction to medications. Discharge Attestations [employer] Time Spent in Discharge Care*: greater than 30 min Coding Level of Care Code Acute Equipment Application Specialist for Shawna Cordova
[2021-06-24] MEDS: prenatal vitamin Capsule 1 CAP PO (09:44)
[2021-06-24] MEDS: docusate sodium 100 mg Capsule PO (09:44)
[2021-06-24] MEDS: ibuprofen 800 mg tablet PO (09:45)
[2021-06-24 11:30] VITALS: BP 114/63; PULSE 77; RESP 16; TEMP 36.4
[2021-06-24 11:32] VITALS: BP 114/63; PULSE 77; TEMP 36.4
== END 2021-06-24 11:40 | disposition home or self-care (01) | DRG 807 ==
LOC: OPOB 12:57 → OBGYN 12:57
PROVIDERS: Admitting Provider Obstetrics & Gynecology; PCP Nurse Practitioner Family; Visit Provider Obstetrics & Gynecology
DX: O42.92 Full-term premature rupture of membranes, unspecified as to length of time between rupture and onset of labor (principal); Z37.0 Single live birth; Z3A.39 39 weeks gestation of pregnancy; O69.81X0 Labor and delivery complicated by cord around neck, without compression, not applicable or unspecified; O75.89 Other specified complications of labor and delivery; K58.1 Irritable bowel syndrome with constipation
CPT/HCPCS: 36415; 59409; 83986; 84112; 85025; 85027; 99211; J0290; J1200

== ENCOUNTER → 2021-07-30 10:56 | Outpatient (BNVA) | payer BC, SELFPAY | PROVIDERS: PCP Nurse Practitioner Family; Visit Provider Obstetrics & Gynecology | DX: Z30.430 Encounter for insertion of intrauterine contraceptive device (principal) | CPT/HCPCS: 81025 ==

== ENCOUNTER 2022-05-02 14:17 | Outpatient (CLI) | payer BC, SELFPAY ==
--- NOTE | 2022-05-02 14:34 | XR_ITS ---
WS: [id number] Lumbar spine, 5 views including both obliques, 05/02/2022 Clinical Data: SCIATICA,LEFT SIDE/LOW BACK PAIN Comparison: None. Findings: No compression fractures or subluxation is seen. No disc space narrowing is seen. The transverse proc esses and SI joints are normal. The oblique films show no spondylolysis. There is an IUD in the region of the uterus. XR/XR lumbar spine min 4V [id number] Impression: Negative lumbar spine with no spondylolysis.
== END 2022-05-02 14:18 | disposition home or self-care (01) ==
PROVIDERS: PCP Nurse Practitioner Family; Visit Provider Nurse Practitioner Family
DX: M54.32 Sciatica, left side (principal); M54.50 Low back pain, unspecified
CPT/HCPCS: 72110

== ENCOUNTER 2023-03-19 11:31 | Outpatient (CLI) | payer BC, SELFPAY ==
--- NOTE | 2023-03-19 11:36 | US_ITS ---
WS: [id number] RIGHT UPPER QUADRANT ULTRASOUND HISTORY: RUQ PAIN/ELEVATED LIVER FUNCTION TEST COMPARISON: 09/13/2020 Liver: 16.7 cm in length. Liver is top normal size. Marked increased attenuation suggesting hepatic s teatosis. The entire liver is not well visualized due to attenuation. No mass or bile duct dilatation identified. Portal Vein: Normal hepatopetal flow with monophasic waveform. Gallbladder: Normally distended gallbladder with no stones or wall thickening. CBD: 0.2 cm Pancreas: Normal size and echogenicity. Right kidney: 10.3 cm in length. Normal size and echogenicity. No hydronephrosis or mass. Aorta and IVC: Unremarkable abdominal aorta and IVC. No ascites. IMPRESSION: 1. Marked hepatic steatosis. No mass identified. 2. Negative gallbladder.
== END 2023-03-19 11:32 | disposition home or self-care (01) ==
LOC: RAD 11:32
PROVIDERS: PCP Nurse Practitioner Family; Visit Provider Nurse Practitioner Family
DX: R10.11 Right upper quadrant pain (principal); R79.89 Other specified abnormal findings of blood chemistry; K76.0 Fatty (change of) liver, not elsewhere classified
CPT/HCPCS: 76705